=== PATIENT | male | born 1965 | race African-American/Black ===

== ENCOUNTER 2024-08-06 11:02 | Emergency (ER) | payer OTHER ==
[~2024-08-06] VITALS: Ht 177.8 cm; Wt 109.0 kg
--- NOTE | 2024-08-06 11:24 | ECG ---
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
--- NOTE | 2024-08-06 11:34 | ED.PDOC ---
HPI (NEURO) HPI Comments 58 y.o male accompanied by spouse, presents to the ED for a chief complaint of dizziness that presented spontaneously while driving today. Patient reports making a slow right turn when dizziness presented associated with brief numbness sensation to the left side of his head. Patient pulled over, got out and had his spouse drive to the [facility] in which he was vaguely examined and referred to the ED for further evaluation. Spouse reports patient's eyes/pupils were flickering. Patient denies any SOB, chest pain, fever, chills, nausea, vomiting, or recent head trauma. Patient has as medical history of DM. Chief Complaint: Dizziness Time Seen by MD: 11:19 Reviewed Notes: Nurses Notes, Medications, Allergies Information Source: Patient Mode of Arrival: Ambulatory Severity: Moderate Dizziness/Weakness Severity: Unable to do activities Headache Severity: None Timing: Hours Duration: Since onset Onset: At rest Circumstances: Spontaneous Symptoms: Numbness History of: DM, Hypertension Modifying factors: Nothing Associated Signs and Symptoms: Numbness (left sided head) Past Medical History PAST MEDICAL HISTORY: DM, HTN Surgical History (Other): Left knee Family History Family History: Family hx of heart [facility] Social History Smoker: Non-Smoker Alcohol: Occasionally Drugs: Denies Drug Use Lives In: Home Constitutional: denies: chills, diaphoresis, fatigue, fever, malaise, sweats, weakness, others EENTM: denies: blurred vision, double vision, ear bleeding, ear discharge, ear drainage, ear pain, ear ringing, eye pain, eye redness, hearing loss, mouth pain, mouth swelling, nasal discharge, nose bleeding, nose congestion, nose pain, photophobia, tearing, throat pain, throat swelling, voice changes, others Respiratory: denies: cough, hemoptysis, orthopnea, SOB at rest, shortness of breath, SOB with excertion, stridor, wheezing, others Cardiovascular: denies: chest pain, dizzy spells, diaphoresis, Dyspnea on exertion, edema, irregular heart beat, left arm pain, lightheadedness, palpitations, PND, syncope, others Gastrointestinal: denies: abdomen distended, abdominal pain, blood streaked bowels, constipated, diarrhea, dysphagia, difficulty swallowing, hematemesis, melena, nausea, poor appetite, poor fluid intake, rectal bleeding, rectal pain, vomiting, others Genitourinary: denies: burning, dysuria, flank pain, frequency, hematuria, incontinence, penile discharge, penile sore, pain, testicle pain, testicle swelling, urgency, others Neurological: reports: dizziness, numbness (head- left sided portion ); denies: fainting, headache, left sided numbness, left sided weakness, paresthesia, pre- existing deficit, right sided numbness, right sided weakness, seizure, speech problems, tingling, tremors, weakness, others Musculoskeletal: denies: back pain, gout, joint pain, joint swelling, muscle pain, muscle stiffness, neck pain, others Integumetry: denies: bruises, change in color, change in hair/nails, dryness, laceration, lesions, lumps, rash, wounds, others Allergic/Immunocompromised: denies: Difficulty Healing, Frequent Infections, Hives, Itching, others Hematologic/Lymphatic: denies: anemia, blood clots, easy bleeding, easy bruising, swollen glands, others Endocrine: denies: excessive hunger, excessive sweating, excessive thirst, excessive urination, flushing, intolerance to cold, intolerance to heat, unexplained weight gain, unexplained weight loss, others Psychiatric: denies: anxiety, bipolar disorder, depression, hopeless, panic disorder, schizophrenia, sleepless, suicidal, others All Other Systems: Reviewed and Negative Physical Exam General Appearance: No Apparent Distress HEENT: Normal ENT Inspection, Pharynx Normal, TMs Normal Neck: Full Range of Motion, Non-Tender, Normal, Normal Inspection Respiratory: Chest Non-Tender, Lungs Clear, No Accessory Muscle Use, No Respiratory Distress, Normal Breath Sounds Cardiovascular: No Edema, No JVD, No Murmur, No Gallop, Normal Peripheral Pu lses, Regular Rate/Rhythm Breast Exam: Deferred Gastrointestinal: No Organomegaly, Non Tender, No Pulsatile Mass, Normal Bowel Sounds, Soft Genitalia: Deferred Pelvic: Deferred Rectal: Deferred Extremities: No calf tenderness, Normal capillary refill, Normal inspection, Normal range of motion, Non-tender, No pedal edema Musculoskeletal : Apperance: Normal Neurologic: Alert, access tech II-XII nml as Tested, No Motor Deficits, Normal Affect, Normal Mood, No Sensory Deficits Cerebellar Function: Normal Reflexes: Normal Skin: Dry, Normal Color, Warm Lymphatic: No Adenopathy EKG EKG : Pulse Rate (adult): 62 [place]: Normal Cardiac Rhythm: NSR ST: Nonsp Was a procedure done? Was a procedure done?: No Differential Diagnosis (SZ) General Weakness: Labyrinthitis, Vertigo: central, Vertigo: peripheral, Vestibular neuronitis X-Ray, Labs, Meds, VS Vital Signs Date Time Temp Pulse Resp B/P (MAP) Pulse Ox O2 Delivery O2 Flow Rate FiO2 08/06/24 12:05 97.0 76 14 145/98 (114) 100 97.0 08/06/24 12:05 100 Room Air* 0 21 08/06/24 12:00 63 08/06/24 11:54 62 08/06/24 11:16 62 08/06/24 11:13 97.0 77 18 145/98 (114) 97 97.0 Lab Test 08/06/24 12:24 08/06/24 11:41 08/06/24 11:11 Range/Units POC Glucose 103 102 70-106 mg/dl White Blood Count 6.6 4.4-10.8 10^3/uL Red Blood Count 5.39 4.5-5.90 10^6/uL Hemoglobin 15.1 13.5-17.5 g/dL Hematocrit 45.7 41.0-53.0 % Mean Corpuscular Volume 84.8 80.0-100.0 fL Mean Corpuscular Hemoglobin 28.0 28.0-32.0 pg Mean Corpuscular Hemoglobin Concent 33.0 32.0-36.0 g/dL Red Cell Distribution Width 15.0 H 11.8-14.3 % Platelet Count 241 140-450 10^3/uL Mean Platelet Volume 8.0 6.9-10.8 fL Neutrophils (%) (Auto) 57.0 37.0-80.0 % Lymphocytes (%) (Auto) 30.4 10.0-50.0 % Monocytes (%) (Auto) 9.9 0.0-12.0 % Eosinophils (%) (Auto) 1.8 0.0-7.0 % Basophils (%) (Auto) 0.9 0.0-2.0 % Neutrophils # (Auto) 3.8 1.6-8.6 10 ^3/uL Lymphocytes # (Auto) 2.0 0.4-5.4 10 ^3/uL Monocytes # (Auto) 0.7 0-1.3 10 ^3/uL Eosinophils # (Auto) 0.1 0-0.8 10 ^3/uL Basophils # (Auto) 0.1 0-0.2 10 ^3/uL Nucleated Red Blood Cells 0.0 % Sodium Level 140 136-145 mmol/L Potassium Level 4.0 3.5-5.1 mmol/L Chloride Level 107 98-107 mmol/L Carbon Dioxide Level 28 20-31 mmol/L Anion Gap 5 5-15 Blood Urea Nitrogen 14 9-23 mg/dL Creatinine 1.16 0.700-1.30 mg/dL Glomerular Filtration Rate Calc 73 >90 mL/min BUN/Creatinine Ratio 12.1 10.0-20.0 Serum Glucose 106 74-106 mg/dL Calcium Level 9.5 8.7-10.4 mg/dL Troponin I High Sensitivity 46 </=54 ng/L CT HEAD WITHOUT CONTRAST IMPRESSION: 1. No intracranial hemorrhage or mass effect. The patient's CBC and chemistry panel are within normal limits The troponin level is negative At this time, the patient has remained just tired but no signs of any vertigo at this time The patient was being discharged and will follow up with the primary care doctor The patient will return to the emergency department's the condition worsens. We did speak with [facility] and they are going to send a note to his primary care doctor The [facility] authorization number for the ER treatment is [id number] Images Reviewed?: Images reviewed and evaluated by me Time of 1ST Reevaluation: 11:24 Reevaluation 1ST: Unchanged Time of 2ND Reevaluation: 13:09 Reevaluation 2ND: Improved Patient Education/Counseling: Diagnosis, Treatment, Prognosis, Need For Follow Up Family Education/Counseling: Diagnosis, Treatment, Prognosis, Need For Follow Up Departure 1 Departure Time of Disposition: 13:09 Impression: Primary Impression: Fatigue Qualified Codes: R53.83 - Other fatigue Disposition: 01 HOME / SELF CARE / HOMELESS Condition: Fair Discharged With: Self, Spouse Critical Care Note Critical Care Time?: No Stability Stability form required: No Heart Score Heart Score: Heart Score Response (Comments) Value History N/A 0 EKG N/A 0 Age N/A 0 Risk Factors N/A 0 Troponin N/A 0 Total 0 I personally scribed for BERNARD KIRKLAND MD ([email or web address]) on 08/06/24 at 11:34. Electronically submitted by Ilene Nava ([facility]). I personally scribed for BERNARD KIRKLAND MD ([email or web address]) on 08/06/24 at 11:54. Electronically submitted by Ilene Nava ([facility]). I personally scribed for BERNARD KIRKLAND MD ([email or web address]) on 08/06/24 at 12:21. Electronically submitted by Ilene Nava ([facility]). BERNARD KIRKLAND MD Aug 06, 2024 11:34
[2024-08-06 12:05] VITALS: TEMP 97; O2SAT 100
[2024-08-06 12:10] LABS: Basophils # (auto) 0.1 10 ^3/uL (0-0.2); Basophils % (auto) 0.9 % (0.0-2.0); Eosinophils # (auto) 0.1 10 ^3/uL (0-0.8); Eosinophils % (auto) 1.8 % (0.0-7.0); Hematocrit 45.7 % (41.0-53.0); Hemoglobin 15.1 g/dL (13.5-17.5); Lymphocytes % (auto) 30.4 % (10.0-50.0); Mean Corpuscular Volume 84.8 fL (80.0-100.0); Monocytes # (auto) 0.7 10 ^3/uL (0-1.3); Monocytes % (auto) 9.9 % (0.0-12.0); Neutrophils # (auto) 3.8 10 ^3/uL (1.6-8.6); Platelet Count (auto) 241 10^3/uL (140-450); Red Blood Cells 5.39 10^6/uL (4.5-5.90); White Blood Cell 6.6 10^3/uL (4.4-10.8)
[2024-08-06 12:16] LABS: Chloride 107 mmol/L (98-107); Sodium 140 mmol/L (136-145)
[2024-08-06 12:17] LABS: Anion Gap 5 (5-15); Carbon Dioxide 28 mmol/L (20-31)
[2024-08-06 12:18] LABS: Calcium 9.5 mg/dL (8.7-10.4)
--- NOTE | 2024-08-06 12:18 | DVH ---
CT HEAD WITHOUT CONTRAST Indication: dizziness EXAM DATE: 08/06/2024 11:48 AM COMPARISON: None TECHNIQUE: CT of the head without intravenous contrast. RADIATION DOSE: CTDIvol: 65.48 mGy, DLP: 1159.26 mGy*cm FINDINGS: There is no intracranial hemorrhage. There is no extra-axial fluid, mass, mass effect or midline shif t. The ventricles are midline and normal in size. Basilar cisterns are patent. Hidalgo-white differentia tion is maintained. The paranasal sinuses and mastoids are well-pneumatized. Imaged portion of the orbits are unremarkabl e. IMPRESSION: 1. No intracranial hemorrhage or mass effect. 2.
[2024-08-06 12:22] LABS: BUN/Creatinine Ratio 12.1 (10.0-20.0); Blood Urea Nitrogen 14 mg/dL (9-23); Glucose 106 mg/dL (74-106)
[2024-08-06 13:30] VITALS: BP 148/67; PULSE 63; RESP 10; O2SAT 99
== END 2024-08-06 13:30 | disposition home or self-care (01) ==
LOC: ER 11:02
DX: R53.83 Other fatigue (principal); R53.1 Weakness; R42 Dizziness and giddiness; E11.9 Type 2 diabetes mellitus without complications; I10 Essential (primary) hypertension
CPT/HCPCS: 36415; 70450; 80048; 82947; 82962; 84484; 85025; 93005